=== PATIENT | female | born 1960 | race Caucasian/White ===

== ENCOUNTER → 2017-02-20 | Outpatient (CLI) | payer BC ==
[~2017-02-20] MED LIST: NORCO 325 MG-51 TAB PO
== END ==
LOC: COL.RAD 09:45
DX: N28.89 Other specified disorders of kidney and ureter (principal)

== ENCOUNTER → 2018-03-12 | Outpatient (CLI) | payer BC | LOC: COL.RAD 09:33 | DX: N28.89 Other specified disorders of kidney and ureter (principal) ==

== ENCOUNTER → 2020-06-02 | Outpatient (CLI) | payer BC | LOC: COL.RAD 09:33 | DX: D35.02 Benign neoplasm of left adrenal gland (principal); D49.7 Neoplasm of unspecified behavior of endocrine glands and other parts of nervous system ==

== ENCOUNTER 2022-05-03 11:46 | Emergency (ER) | payer OTHER ==
[~2022-05-03] VITALS: Ht 162.6 cm; Wt 81.4 kg
[2022-05-03 11:54] VITALS: TEMP 98.5
[2022-05-03 12:19] LABS: BASO # 0.1 K/mm3 (0.0-0.2); BASO % 0.8 % (0.0-2.0); EOS # 0.1 K/mm3 (0.0-0.7); EOS % 1.2 % (0.0-4.0); GRAN # 3.6 K/mm3 (1.4-6.5); GRAN % 60.1 % (42.2-75.2); HEMATOCRIT 42.8 % (37.0-47.0); HEMOGLOBIN 14.6 g/dl (12.5-16.0); LYMPH # 1.7 K/mm3 (1.2-3.4); LYMPH % 29.3 % (20.0-51.0); MEAN CELL VOLUME 93 fl (80.0-100.0); MEAN CORPUSCULAR HEMOGLOBIN 32 pg (27-31); MEAN CORPUSCULAR HGB CONC 34 g/dl (33.0-37.0); MEAN PLATELET VOLUME 9.6 fl (7.4-10.4); MONO # 0.5 K/mm3 (0.1-0.6); MONO % 8.1 % (1.7-9.3); PLATELET COUNT 352 K/mm3 (130-400); RED BLOOD COUNT 4.61 M/mm3 (4.10-5.30)
[2022-05-03 12:24] LABS: ANION GAP 10 mmol/L (7-16); BLOOD UREA NITROGEN 11 mg/dL (10-20); CALCIUM 9.6 mg/dL (8.4-10.2); CARBON DIOXIDE 23 mmol/L (23-31); CHLORIDE 107 mmol/L (98-107); CREATININE, serum 0.81 mg/dL (0.57-1.11); GLUCOSE 104 mg/dL (70-99); POTASSIUM 3.6 mmol/L (3.5-4.5); SODIUM 140 mmol/L (136-145)
[2022-05-03 12:34] LABS: TROPONIN-I < 0.010 ng/mL (0.00-0.033)
[2022-05-03 12:49] VITALS: PULSE 75
[2022-05-03 15:44] VITALS: BP 159/96
== END 2022-05-03 15:54 | disposition home or self-care (01) ==
LOC: COL.ER 11:46
PROVIDERS: Emergency Medicine
DX: R07.89 Other chest pain (principal)